=== PATIENT | female | born 1995 | race Caucasian/White ===

== ENCOUNTER 2017-12-26 10:01 | Emergency (ER) | payer SELFPAY ==
[~2017-12-26] VITALS: Ht 175.3 cm; Wt 74.8 kg
[2017-12-26] MEDS ORDERED: Amoxicillin875 MG PO (11:00)
[2017-12-26] MEDS ORDERED: FLOXIN10 ML RIGHTEAR (11:00)
[2017-12-26] MEDS ORDERED: Ultram50 MG PO (11:00)
== END 2017-12-26 11:08 | disposition home or self-care (01) ==
LOC: ER 10:01
DX: H72.91 Unspecified perforation of tympanic membrane, right ear (principal); Z91.013 Allergy to seafood
CPT/HCPCS: 99283